=== PATIENT | male | born 1995 | race Two or more races ===

== ENCOUNTER 2022-10-15 11:51 | Outpatient (AMB) | payer OTHER, SELFPAY ==
--- NOTE | 2022-10-15 12:11 | MHC.PC.OV ---
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 He recently moved here from [place], her complains of recurrent itchy rash on the glans of penis, present for the last several weeks now. He is uncircumcised but states that he cleans foreskin well. Has been applying cortisone cream and aloe, which affords only temporary relief. He notices the rash occurring more frequently after sexual intercourse. Denies any penile discharge, no testicular lump or mass, no enlarged inguinal lymph nodes noted. Blood pressure noted to be elevated on today's visit, patient states that he has not been diagnosed with hypertension. He denies chest pain, but complains of good, no shortness of breath or dyspnea on exertion [facility] Medical History (Updated 09/22/23 @ 00:27 by Ashlee Mortensen MD) Vaccine refused by patient History of heroin use Balanitis Elevated blood pressure reading in office with diagnosis of hypertension Obesity (BMI 35.0-39.9 without comorbidity) Surgical History (Updated 09/22/23 @ 00:28 by Ashlee Mortensen MD) No pertinent past surgical history Social History Housing: Apartment Patient Tobacco Use Status: Former Tobacco user e-Cigarette/Vaping Use: Never Used service: No Current occupational status: employed Cognitive needs: No Hearing needs: No Vision needs: Yes Questionnaire PHQ-9 Over the last 2 weeks, how often have you been bothered by any of the following problems? 1. Little interest or pleasure in doing things: not at all 2. Feeling down, depressed, or hopeless: not at all 3. Trouble falling or staying asleep, or sleeping too much: not at all 4. Feeling tired or having little energy: not at all 5. Poor appetite or overeating: not at all 6. Feeling bad about yourself - or that you are a failure or have let yourself or your family down: not at all 7. Trouble concentrating on things, such as reading the newspaper or watching television: not at all 8. Moving or speaking so slowly that other people could have noticed. Or the opposite - being so fidgety or restless that you have been moving around a lot more than usual: not at all 9. Thoughts that you would be better off or of hurting yourself in some way: not at all Total score: 0 Depression Screening Interpretation: Negative 34028 - PHQ-9 Billing: Yes Source: Developed by Drs. Juan Carlos Pepper, Sarah Terry, Elias Jamison and colleagues, with an educational rose from [employer]. Thrive Questionnaire Date Thrive assessed: 10/15/22 I am a: Patient What is your living situation today?: I have a steady place to live Within the past 12 months, did the food you bought not last and you didn't have the money to get more?: Never true Within the past 12 months, did you worry whether your food would run out before you got money to buy more?: Never true Do you have trouble paying for medicines?: No Do you have trouble getting transportation to medical appointments?: No Do you have trouble paying your heating and electricity bill?: No Do you have trouble taking care of your child, family member or friend?: No Do you have trouble with day-to-day activities such as bathing, preparing meals, shopping, managing finances, etc.?: No Are you currently unemployed and looking for a job?: No Are you interested in more education?: No AUDIT C Alcohol Use Questionnaire (AUDIT-C) 1. How often do you have a drink containing alcohol?: Never Total Score: 0 BELA-7 AMB Questionnaire BELA-7 Date BELA - 7 assessed: 10/15/22 Feeling nervous, anxious, or on edge: 1 = Several days Not being able to stop or control worryin = Several days Worrying too much about different things: 1 = Several days Trouble relaxin = Not at all Being so restless that it is hard to sit still: 0 = Not at all Becoming easily annoyed or irritable: 0 = Not at all Feeling afraid as if something awful might happen: 0 = Not at all Total BELA-7 score (0-4 normal; 5-9 mild; 10-14 moderate; 15-21 severe): 3 Source: Developed by Drs. Juan Carlos Pepper, Sarah Terry, Elias Jamison and colleagues, with an educational rose from [employer]. BELA-7 Assessment Billing BELA-7 Assessment Tool: BELA-7 Assessment 65138 Review of Systems Const Denies body aches, Denies fatigue, Denies fever(s), Denies headache(s) and Denies weakness Eyes Denies change in vision ENT Denies dizziness, Denies headache(s) and Denies sore throat Card Denies chest pain, Denies lightheadedness, Denies palpitations and Denies dyspnea Resp Denies chest congestion, Denies cough, Denies dyspnea and Denies wheezing GI Denies abdominal pain, Denies change in bowel habits and Denies heartburn Denies hematuria, Denies difficulty urinating, Denies dysuria and Denies urinary frequency Musc Reports no additional complaints Skin/Breast Reports as per HPI Neuro Denies dizziness, Denies headache(s) and Denies weakness Psych Reports no additional complaints Endo Denies fatigue, Denies polydipsia, Denies polyuria and Denies palpitations Jesus/Lymph Denies easy bruising Aller/Immun Denies seasonal rhinorrhea and Denies wheezing Physical exam (Primary Care) Vital Signs: Last Vital Signs Pulse 95 10/15/22 12:27 BP 140/85 H 10/15/22 12:27 Pulse Ox 100 10/15/22 12:27 Oxygen Delivery Method Room Air 10/15/22 12:27 BMI result Body Mass Index 37.7 Tobacco/Smoking Status: Tobacco use Status Tobacco use date assessed 10/15/22 10/15/22 12:27 Patient Tobacco Use Status Former Tobacco user 10/15/22 12:27 e-Cigarette/Vaping Use Never Used 10/15/22 12:27 PHQ-9: PHQ-9 Score PHQ-9: Total score 0 10/15/22 18:01 Depression Screening Interpretation: Negative Thrive Assessment: Date of Thrive Assessment Date Thrive assessed 10/15/22 10/15/22 12:34 Const General: comfortable, no acute distress and alert Nutritional Appearance: obese Orientation/consciousness: patient oriented x3 HENMT Ears: external ears normal General nose exam: No nasal discharge present Mouth: Normal oral and palatal mucosa present, oropharynx normal and moist mucous membranes Eyes General: appearance normal, both eyes and all related structures Neck Neck: Yes full ROM, Yes no lymphadenopathy and Yes supple Resp Effort & Inspection: normal respiratory effort and able to speak in complete sentences Auscultation: clear to auscultation bilaterally Cardio Rate: regular rate Rhythm: regular rhythm Heart sounds: S1 normal heart sound present and S2 normal heart sound present GI Palpation (GI): Soft to palpation, nontender and no masses Auscultation: normal bowel sounds Other: Mild erythema and swelling over glans penis, no penile discharge, no inguinal lymphadenopathy, no testicular mass or swelling noted Back/Spine/Pelvis Back: No back tenderness Neuro General: patient oriented x3, gait normal, tone normal, moves all extremities, Normal light touch and pain sensation and no focal motor deficits Cranial nerves: Yes CN's II-XII intact bilaterally Cognition (Neuro): normal cognition Extrem General: Yes full ROM and Yes no joint enlargement Psych Appearance: grossly normal and well kempt Mental Status: mental status grossly normal Speech and movement: Normal speech and movement present Affect: normal affect Immunizations Boostrix Tdap 2.5 Lf unit-8 mcg-5 Lf/0.5 mL intramuscular syringe Performing Provider: Ashlee Mortensen MD Performing Location: [facility] Administered by: Jasmin Magaña CMA on 10/15/22 14:00 Dose Route Admin Location Dispensed Lot Number Expiration Date NDC Dred[employer] Hand 0.5 mL IM Left Deltoid 0.5 mL L 02/03/25 [id number] [employer] VIS Given Date VIS Provided VIS Publication Date 10/15/22 Single Vaccine 20 Eligibility Eligibility Date Funding Source Not VF Eligible 10/15/22 Private Assessment and Plan Assessment & Plan (1) Annual visit for general adult medical examination with abnormal findings: Code(s): Z00.01 - Encounter for general adult medical examination with abnormal findings Plan: Fasting labs ordered , reinforced importance of following a low-cholesterol diet and getting regular exercise. Tdap given today. Reminded to get yearly flu shot (2) Balanitis: Code(s): N48.1 - Balanitis Plan: Prescription sent for nystatin triamcinolone cream apply twice a day to affected area for no more than 10 days . (3) Elevated blood pressure reading in office with diagnosis of hypertension: Code(s): I10 - Essential (primary) hypertension Plan: Reinforced importance of following a low-salt diet, return to clinic for recheck in 1 week after fasting labs (4) Screening for STD (sexually transmitted disease): Code(s): Z11.3 - Encounter for screening for infections with a predominantly sexual mode of transmission Plan: Labs ordered to check for HIV antibody, hepatitis-B and C profile, syphilis screening, and CT NG by PCR test (5) Obesity (BMI 35.0-39.9 without comorbidity): Code(s): E66.9 - Obesity, unspecified Plan: Discussed need to increase activity and wt reduction. Recommended focusing on improving your health instead of dieting. : Eat Mediterranean diet, limit foods high in fat, sugar, and calories, eat slowly, pay attention to portion sizes, plan your meals ahead of time, start regular physical activity 150 minutes of moderate intensity exercise or 90 minutes/week of vigorous exercise Orders: Orders HIV Ab/Ag 10/21/22 Z11.3 - Encounter for screening for infections with a predominantly sexual mode of transmission Hepatitis B,C Profile 10/21/22 Z11.3 - Encounter for screening for infections with a predominantly sexual mode of transmission Syphilis Screen 10/21/22 Z11.3 - Encounter for screening for infections with a predominantly sexual mode of transmission Lipid Panel 10/21/22 Z11.3 - Encounter for screening for infections with a predominantly sexual mode of transmission Alanine Aminotransferase 10/21/22 Z11.3 - Encounter for screening for infections with a predominantly sexual mode of transmission Aspartate Amino Transferase 10/21/22 Z11.3 - Encounter for screening for infections with a predominantly sexual mode of transmission Complete Blood Count Auto Diff 10/21/22 Z11.3 - Encounter for screening for infections with a predominantly sexual mode of transmission CT NG by PCR 10/15/22 Z11.3 - Encounter for screening for infections with a predominantly sexual mode of transmission Basic Metabolic Panel Fasting 10/21/22 Z11.3 - Encounter for screening for infections with a predominantly sexual mode of transmission TDaP Immunization 10/15/22 Z23 - Encounter for immunization Medications: New nystatin-triamcinolone 100,000-0.1 unit/g-% 1 appl topical BID 30 grams 0RF 10 days Coding Level of Care Code New Pt Prev Care 18-39yr([id number] Diagnoses Annual visit for general adult medical examination with abnormal findings Z00.01 Balanitis N48.1 Elevated blood pressure reading in office with diagnosis of hypertension I10 Screening for STD (sexually transmitted disease) Z11.3 Obesity (BMI 35.0-39.9 without comorbidity) E66.9 Additional Codes BELA-7 Assessment Billing - BELA-7 Assessment Tool: BELA-7 Assessment [id number] ([id number])
[2022-10-15 12:27] VITALS: BP 140/85; PULSE 95; O2SAT 100; BMI 37.7
== END 2022-10-15 13:17 | disposition home or self-care (01) ==
LOC: HO.HMGC 11:51
PROVIDERS: PCP Internal Medicine; Visit Provider Internal Medicine
DX: Z00.00 Encounter for general adult medical examination without abnormal findings (principal); E66.9 Obesity, unspecified; Z68.37 Body mass index [BMI] 37.0-37.9, adult; N48.1 Balanitis; I10 Essential (primary) hypertension; Z11.3 Encounter for screening for infections with a predominantly sexual mode of transmission
CPT/HCPCS: 99499

== ENCOUNTER 2022-10-15 13:13 | Outpatient (REF) | payer OTHER, SELFPAY ==
[2022-10-15 15:43] LABS: CT PCR NOT DETECTED (Not Detect.); NG PCR NOT DETECTED (Not Detect.)
== END 2022-10-15 13:14 | disposition home or self-care (01) ==
LOC: HO.LAB 13:13
PROVIDERS: Visit Provider Internal Medicine
DX: Z11.3 Encounter for screening for infections with a predominantly sexual mode of transmission (principal)
CPT/HCPCS: 0353U

== ENCOUNTER 2022-10-21 12:54 | Outpatient (REF) | payer OTHER, SELFPAY ==
[2022-10-21 14:01] LABS: MANUAL DIFF FLAG NO
[2022-10-21 14:16] LABS: Basophils Percent Auto 0.6 % (0-2); Eosinophils Absolute Auto 0.1 X10*3/uL (0.0-0.4); Hematocrit 43.9 % (42.0-52.0); Hemoglobin 13.4 g/dl (14.0-18.0); Imm Gran Abs Auto 0.01 X10*3/uL (0.00-0.03); Imm Gran Pct Auto 0.1 % (0.0-0.4); Lymphocytes Absolute Auto 2.9 X10*3/uL (1.2-4.9); Lymphocytes Percent Auto 39.9 % (20-40); Mean Corpuscular HGB Conc 30.5 g/dl (31.0-36.0); Mean Corpuscular Hemoglobin 21.4 pg (27.0-33.0); Mean Corpuscular Volume 70.1 fL (80.0-98.0); Mean Platelet Volume 10.8 fL (9.4-12.4); Monocytes Absolute Auto 0.4 X10*3/uL (0.1-1.2); Monocytes Percent Auto 5.3 % (2-11); Neutrophils Absolute Auto 3.7 x10*3/uL (2.0-8.3); Neutrophils Percent Auto 52.1 % (45-73); Platelet Count 229 X10*3/uL (160-400); Red Blood Count 6.26 X10*6/uL (4.60-5.80); Red Cell Distribution Width 14.8 % (11.0-16.0); White Blood Count 7.1 X10*3/uL (4.8-10.8)
[2022-10-21 14:31] LABS: Alanine Aminotransferase 49 U/L (0-40); Anion Gap 12 (12-20); Aspartate Amino Transferase 24 U/L (5-37); Blood Urea Nitrogen 8 mg/dL (9-16); Calcium 9.9 mg/dL (8.4-10.2); Carbon Dioxide 29 mmol/L (22-29); Chloride 100 mmol/L (96-108); Cholesterol 232 mg/dL; Estimated Glomerular Filt Rate > 60; Glucose Fasting 261 mg/dL (60-99); HDL Cholesterol 34 mg/dL; LDL Cholesterol Calculated 153 mg/dl; Potassium 4.2 mmol/L (3.3-5.1); Sodium 137 mmol/L (135-145); Triglycerides 227 mg/dL
[2022-10-22 04:50] LABS: Syphilis Screen Nonreactive (Nonreactive)
[2022-10-22 05:01] LABS: HBS Num1 4.32 mIU/mL (0-7.99); HBc Num1 0.09 S/CO (0.00-0.79); HBsAGNum1 0.44 S/CO (0.00-0.99); HIV AB/AG Nonreactive (Nonreactive); HIV Num 1 0.06 S/CO (0.00-0.99); Hepatitis B Core Antibody Nonreactive (Nonreactive); Hepatitis B Surface Antigen Negative (Negative); ~HepC Num1 0.06 S/CO (0.00-0.79); ~Hepatitis B Surface Antibody NONREACTIVE (Nonreactive); ~Hepatitis C Antibody Nonreactive (Nonreactive)
== END 2022-10-21 12:55 | disposition home or self-care (01) ==
LOC: HO.HMGCLDS 12:54
PROVIDERS: PCP Internal Medicine; Visit Provider Internal Medicine
DX: Z20.2 Contact with and (suspected) exposure to infections with a predominantly sexual mode of transmission (principal)
CPT/HCPCS: 36415; 80048; 80061; 84450; 84460; 85025; 86704; 86706; 86780; 86803; 87340; 87389

== ENCOUNTER 2022-10-22 13:17 | Outpatient (AMB) | payer OTHER, SELFPAY ==
--- NOTE | 2022-10-22 13:23 | A.OFFPC_ITS ---
Vital Signs 10/22/22 13:32 Height 6 ft 1 in Weight 289 lb BMI 38.1 BP 152/98 H Blood Pressure Location Lt brachial Position Sitting Pulse 86 Pulse Source Pulse Oximeter Pulse Oximetry (%) 97 Oxygen Delivery Method Room Air Intake Visit Reasons: 1 week Follow up Recheck BP/Elevated last visit Intake Note: Pt is here today for his 1 week f/u elevated b/p Allergies No Known Allergies Allergy (Verified 07/15/23 10:14) Medication List - Last Reconciled 07/12/23 by Ashlee Mortensen MD blood sugar diagnostic (FreeStyle Lite Strips) Check fasting glucose twice a day before meals blood-glucose meter (FreeStyle [place] Lite kit) Check blood sugar fasting twice a day before meals lancets Check fasting glucose twice a day before lisinopril 5 mg PO DAILY metformin 500 mg PO BIDWMEAL nystatin-triamcinolone 100,000-0.1 unit/g-% 1 appl topical BID 10 days rosuvastatin 5 mg PO DAILY Tobacco use date assessed: 10/22/22 HPI 1 week Follow up Recheck BP/Elevated last visit HPI Details 27-year-old male here today for follow-u p. He was recently seen a week ago with elevated blood pressure and recent fasting labs showed please of diabetes mellitus uncontrolled, mixed dyslipidemia, and blood pressure still elevated on this visit. [facility] Medical History (Updated 09/22/23 @ 00:37 by Ashlee Mortensen MD) Essential hypertension Mixed dyslipidemia Type 2 diabetes mellitus with hyperglycemia, without long-term current use of insulin History of heroin use Balanitis Obesity (BMI 35.0-39.9 without comorbidity) Surgical History (Updated 09/22/23 @ 00:28 by Ashlee Mortensen MD) No pertinent past surgical history Social History Housing: Apartment Patient Tobacco Use Status: Former Tobacco user e-Cigarette/Vaping Use: Never Used service: No Current occupational status: employed Cognitive needs: No Hearing needs: No Vision needs: Yes Questionnaire PHQ-9 Over the last 2 weeks, how often have you been bothered by any of the following problems? Depression Screening Interpretation: Negative Source: Developed by Drs. Juan Carlos Pepper, Sarah B.Elias Pace and colleagues, with an educational rose from [employer]. Thrive Questionnaire Date Thrive assessed: 10/15/22 BELA-7 AMB Questionnaire BELA-7 Date BELA - 7 assessed: 10/15/22 Source: Developed by Drs. Juan Carlos Pepper, Elias Islas and colleagues, with an educational rose from [employer]. Review of Systems Const Denies body aches, Denies fatigue, Denies fever(s), Denies headache(s), Denies weakness and Denies weight loss Eyes Denies change in vision ENT Denies dizziness, Denies headache(s) and Denies sore throat Card Denies chest pain, Denies lightheadedness, Denies palpitations and Denies dyspnea Resp Denies chest congestion, Denies cough, Denies dyspnea and Denies wheezing GI Denies abdominal pain, Denies change in bowel habits and Denies heartburn Denies hematuria, Denies difficulty urinating, Denies dysuria and Reports urinary frequency Musc Reports no additional complaints Neuro Denies dizziness, Denies headache(s) and Denies weakness Endo Denies fatigue, Reports polydipsia, Reports polyuria and Denies palpitations Jesus/Lymph Denies easy bruising Aller/Immun Denies seasonal rhinorrhea and Denies wheezing Physical exam (Primary Care) Vital Signs: Last Vital Signs Pulse 86 10/22/22 13:32 BP 152/98 H 10/22/22 13:32 Pulse Ox 97 10/22/22 13:32 Oxygen Delivery Method Room Air 10/22/22 13:32 BMI result Body Mass Index 38.1 Tobacco/Smoking Status: Tobacco use Status Tobacco use date assessed 10/22/22 10/22/22 13:27 Patient Tobacco Use Status Former Tobacco user 10/22/22 13:27 e-Cigarette/Vaping Use Never Used 10/22/22 13:27 Depression Screening Interpretation: Negative Thrive Assessment: Date of Thrive Assessment Date Thrive assessed 10/15/22 10/22/22 13:27 Const General: comfortable, no acute distress and alert Orientation/consciousness: patient oriented x3 HENMT Ears: external ears normal General nose exam: No nasal discharge present Mouth: oropharynx normal and moist mucous membranes Eyes General: appearance normal, both eyes and all related structures Neck Neck: Yes full ROM, Yes no lymphadenopathy and Yes supple Resp Effort & Inspection: normal respiratory effort and able to speak in complete sentences Auscultation: clear to auscultation bilaterally Cardio Rate: regular rate Rhythm: regular rhythm Heart sounds: S1 normal heart sound present and S2 normal heart sound present GI Palpation (GI): Soft to palpation, nontender and no masses Auscultation: normal bowel sounds Neuro General: patient oriented x3, gait normal, tone normal, moves all extremities, Normal light touch and pain sensation and no focal motor deficits Cranial nerves: Yes CN's II-XII intact bilaterally Cognition (Neuro): normal cognition Extrem General: Yes full ROM and Yes no joint enlargement Immunizations pneumoc 20-jayshree conj-dip cr(PF) 0.5 mL IM syringe Performing Provider: Ashlee Mortensen MD Performing Location: [facility] Administered by: Jasmin Magaña CMA on 10/22/22 14:33 Dose Route Admin Location Dispensed Lot Number Expiration Date NDC Manager Medical Device 0.5 mL IM Right Deltoid 0.5 mL GN [id number] 02/15/24 [employer] [place] VIS Given Date VIS Provided VIS Publication Date 10/22/22 Single Vaccine 21 Eligibility Eligibility Date Funding Source Not VFC Eligible 10/22/22 Private Results Reviewed Results Reviewed: RUN: 09/22/23 0032 PAGE 1 [facility] [address] [place] [phone] Data Manager: Prudencio Fields M.D. Specimen Inquiry Name: Girma Cuba Age/Sex: 27/M : 1995 Unit#: [id number] Attend Dr: Ashlee Mortensen MD Re10/21/22 Status: DEP REF Location: [facility] Disch: SPEC : [id number] [place]LE[place]: 10/21/22-1302 STATUS: COMP REQ : [id number] RECD: 10/21/22-[address]: Ashlee Mortensen MD COMP: 10/21/22-1299 ENTERED: 10/21/22-[address] [facility] DR: ORDERED: CBC Auto Diff Test Result Flag Reference WBC 7.1 4.8-10.8 X10*3/uL RBC 6.26 H 4.60-5.80 X10*6/uL HGB 13.4 L 14.0-18.0 g/dl HCT 43.9 42.0-52.0 % MCV 70.1 L 80.0-98.0 fL MCH 21.4 L 27.0-33.0 pg MCHC 30.5 L 31.0-36.0 g/dl RDW 14.8 11.0-16.0 % PLT 229 160-400 X10*3/uL MPV 10.8 9.4-12.4 fL Neut Pct Auto 52.1 45-73 % ImGran Pct Auto 0.1 0.0-0.4 % Lymp Pct Auto 39.9 20-40 % Dolores Pct Auto 5.3 2-11 % Eos Pct Auto 2.0 0-4 % Baso Pct Auto 0.6 0-2 % NRBC Pct Auto 0.0 0.0-0.2 /100WBC ANC Neut Abs # 3.7 2.0-8.3 x10*3/uL ImGran Abs Auto 0.01 0.00-0.03 X10*3/uL Lymph Abs Auto 2.9 1.2-4.9 X10*3/uL Dolores Abs Auto 0.4 0.1-1.2 X10*3/uL Eos Abs Auto 0.1 0.0-0.4 X10*3/uL Baso Abs Auto 0.0 0.0-0.2 X10*3/uL NRBC Abs Auto 0.000 0.0-0.012 X10*3/uL Name: Girma Cuba Age/Sex: 27/M : 1995 Unit#: [id number] Attend Dr: Ashlee Mortensen MD Re07/21/23 Status: DEP REF Location: [facility] Disch: SPEC : [id number] CELESTINO: 07/21/23 STATUS: COMP REQ : [id number] RECD: 07/21/[address]: Ashlee Mortensen MD COMP: 07/21/23 ENTERED: 07/21/23 [facility] [address]: ORDERED: Met Prof Fast, AST, ALT, Lipid Panel Test Result Flag Reference Sodium 139 135-145 mmol/L Potassium 4.3 3.3-5.1 mmol/L CL 103 96-108 mmol/L CO2 27 22-29 mmol/L Gap 13 12-20 BUN 10 9-16 mg/dL Creat 0.81 0.5-1.4 mg/dL EGFR > 60 NOTE: For -[place] individuals, multiply the result by 1.210. Chronic Kidney Disease: Estimated GFR < 60 mL/min/1.73m2 Severe Kidney Disease: Estimated GFR < 15 mL/min/1.73m2 FBS 261 H 60-99 mg/dL A fasting glucose of 126 mg/dl or greater on more than one occasion is considered diagnostic of diabetes. CA 9.5 8.4-10.2 mg/dL AST (GOT) 16 5-37 U/L ALT (GPT) 34 0-40 U/L Triglyceride 212 H <150 mg/dL Desirable Triglyceride: less than 150 mg/dL Borderline High Triglyceride 150-199 mg/dL High Triglyceride: 200-499 mg/dL Very High Triglyceride: greater than or equal to 5OO mg/dL Cholesterol 248 H <200 mg/dL Desirable Cholesterol: less than 200 mg/dL Borderline High Cholesterol: 200-239 mg/dL High Cholesterol: greater than 239 mg/dL LDL Calculated 170 H <100 mg/dL Desirable LDL: less than 100 mg/dL Near Optimal/Above Optimal LDL: 110-129 mg/dL Borderline High LDL: 130-159 mg/dL High LDL: 160-189 mg/dL Very High LDL: greater than or equal to 190 mg/dL HDL 36 L >40 mg/dL Desirable HDL: greater than 40 mg/dL Note: This HDL assay may give artificially low results in patients with liver disease. Laboratory Tests 10/22/22 14:40 Estimat Average Glucose 303 Hemoglobin A1c % 12.2 Assessment and Plan Assessment & Plan (1) Diabetes mellitus with hyperglycemia, without long-term current use of insulin: Code(s): E11.65 - Type 2 diabetes mellitus with hyperglycemia Qualifiers: Diabetes mellitus type: type 2 Qualified Code(s): E11.65 - Type 2 diabetes mellitus with hyperglycemia Plan: Start metformin 500 mg to take 1 tablet twice a day with meals, reinforced importance of following diabetic diet and getting regular exercise for more weight loss, Prevnar 20 given today, advised to get yearly flu vaccine, advised to get yearly diabetes retinopathy screening. Inspect feet for any lesions or calluses or ulcers repeat hemoglobin A1c, basic metabolic panel and a urine for microalbuminuria screening in 3 months Check fasting blood sugar twice a day before meals and keep a record of glucose log to be reviewed on next visit (2) Dyslipidemia: Code(s): E78.5 - Hyperlipidemia, unspecified Plan: Recent fasting lipids showed elevated LDL cholesterol and triglycerides, started on rosuvastatin 5 mg taken once a day, combined this with adherence to low- cholesterol diet, weight loss through diet and exercise. Avoidance of alcohol intake when taking this medication (3) Essential hypertension: Code(s): I10 - Essential (primary) hypertension Plan: Blood pressure goal is less than 130/80. Started on lisinopril 5 mg taken once a day in a.m. Reinforced importance of following a low sodium diet, getting regular exercise, and lowering stress levels. (4) Mixed dyslipidemia: Code(s): E78.2 - Mixed hyperlipidemia Plan: Recent fasting lipids showed elevated LDL cholesterol and triglycerides, started on rosuvastatin 5 mg taken once a day, combined this with adherence to low- cholesterol diet, weight loss through diet and exercise. Avoidance of alcohol intake when taking this medication Orders: Orders Microalbumin, Random (w Creat) 10/22/22 E11.65 - Type 2 diabetes mellitus with hyperglycemia Alanine Aminotransferase 3 Months E11.65 - Type 2 diabetes mellitus with hyperglycemia, E78.5 - Hyperlipidemia, unspecified, E66.9 - Obesity, unspecified, I10 - Essential (primary) hypertension Aspartate Amino Transferase 3 Months E11.65 - Type 2 diabetes mellitus with hyperglycemia, E78.5 - Hyperlipidemia, unspecified, E66.9 - Obesity, unspecified, I10 - Essential (primary) hypertension Hemoglobin A1c 3 Months E11.65 - Type 2 diabetes mellitus with hyperglycemia, E78.5 - Hyperlipidemia, unspecified, E66.9 - Obesity, unspecified, I10 - Essential (primary) hypertension Hemoglobin A1c 06/07/23 E11.65 - Type 2 diabetes mellitus with hyperglycemia Lipid Panel 3 Months E11.65 - Type 2 diabetes mellitus with hyperglycemia, E78.5 - Hyperlipidemia, unspecified, E66.9 - Obesity, unspecified, I10 - Essential (primary) hypertension Basic Metabolic Panel Fasting 3 Months E11.65 - Type 2 diabetes mellitus with hyperglycemia, E78.5 - Hyperlipidemia, unspecified, E66.9 - Obesity, unspecified, I10 - Essential (primary) hypertension Pneumococcal 20 Immunization 10/22/22 Z23 - Encounter for immunization Medications: New metformin 500 mg PO BIDWMEAL 60 tabs 4RF lisinopril 5 mg PO DAILY 30 tabs 4RF rosuvastatin 5 mg PO DAILY 30 tabs 4RF blood-glucose meter (FreeStyle [place] Lite kit) Check blood sugar fasting twice a day before meals 1 ea 0RF E11.65 - Type 2 diabetes mellitus with h yperglycemia, E78.5 - Hyperlipidemia, unspecified, E66.9 - Obesity, unspecified, I10 - Essential (primary) hypertension blood sugar diagnostic (FreeStyle Lite Strips) Check fasting glucose twice a day before meals 100 ea 4RF E11.65 - Type 2 diabetes mellitus with hyperglycemia lancets Check fasting glucose twice a day before 100 ea 4RF E11.65 - Type 2 diabetes mellitus with hyperglycemia Coding Level of Care Code Est Pt Level 4 (35596) Diagnoses Type 2 diabetes mellitus with hyperglycemia, without long-term current use of insulin E11.65 Diabetes mellitus type: type 2 Dyslipidemia E78.5 Essential hypertension I10 Mixed dyslipidemia E78.2
[2022-10-22 13:32] VITALS: BP 152/98; PULSE 86; O2SAT 97; BMI 38.1
== END 2022-10-22 14:33 | disposition home or self-care (01) ==
LOC: HO.HMGC 13:17
PROVIDERS: PCP Internal Medicine; Visit Provider Internal Medicine
DX: E11.65 Type 2 diabetes mellitus with hyperglycemia (principal); E78.5 Hyperlipidemia, unspecified; I10 Essential (primary) hypertension; E78.2 Mixed hyperlipidemia
CPT/HCPCS: 99499

== ENCOUNTER 2022-10-22 14:36 | Outpatient (REF) | payer OTHER, SELFPAY ==
[2022-10-22 17:56] LABS: Creatinine Urine 94.76 mg/dL; Microalbum/Creatinine Ratio Ur 35.8 ug/mg cr
[2022-10-23 05:21] LABS: Estimated Average Glucose 303 mg/dL; Hemoglobin A1c % 12.2 %
== END 2022-10-22 14:37 | disposition home or self-care (01) ==
LOC: HO.HMGCLDS 14:36
PROVIDERS: PCP Internal Medicine; Visit Provider Internal Medicine
DX: E11.65 Type 2 diabetes mellitus with hyperglycemia (principal)
CPT/HCPCS: 36415; 82043; 83036

== ENCOUNTER 2023-07-15 09:03 | Outpatient (AMB) | payer OTHER, SELFPAY ==
[2023-07-15 09:44] VITALS: BP 140/98; PULSE 80; O2SAT 98; BMI 34.0
--- NOTE | 2023-07-15 09:44 | A.OFFPC_ITS ---
Vital Signs 07/15/23 09:44 Height 6 ft 1 in Weight 258 lb BMI 34.0 BP 140/98 H Blood Pressure Location Lt brachial Position Sitting Pulse 80 Pulse Source Pulse Oximeter Pulse Oximetry (%) 98 Oxygen Delivery Method Room Air Intake Visit Reasons: DM, lipids, HTN -Follow Up Intake Note: Pt is here today to f/u DM, lipids and HTN: patient didn't get labs done, but a A1C will be done at the office: Pt wants to discuss insomnia Allergies No Known Allergies Allergy (Verified 07/15/23 10:14) Medication List - Last Reconciled 07/15/23 by Ashlee Mortensen MD blood sugar diagnostic (FreeStyle Lite Strips) Check fasting glucose twice a day before meals blood-glucose meter (FreeStyle [place] Lite kit) Check blood sugar fasting twice a day before meals lancets Check fasting glucose twice a day before lisinopril 5 mg PO DAILY metformin 500 mg PO BIDWMEAL Tobacco use date assessed: 07/15/23 Dental Screening Dental Screen Date: 07/15/23 Did you have a dental visit in the last 12 months?: Yes Did you have a dental problem in the last 6 months where you did not have access to dental care?: No Was dental information given to patient?: Patient has dentist HPI DM, lipids, HTN -Follow Up HPI Details 27-year-old male with diabetes mellitus, hypertension, dyslipidemia, and obesity, here today for follow-up. He is currently taking metformin 500 mg 1 tablet twice a day, lisinopril 5 mg 1 tablet in the morning. Not very compliant with diet, and has not yet had his fasting labs done as instructed. His hemoglobin A1c drawn at the clinic today came back high at 9.8%, but patient states that he has been checking his sugar in the morning and has been running in the low 100s, but does go up to low 200 in the afternoon. He does not want to get any vaccinations. He also states that he has stopped using her when 3 weeks ago and has been trying to turn his life around, eating healthier, and trying to stay more active. Blood pressure today is better as compared to last check but still not at goal. COUNTS INCLUDE 234 BEDS AT THE [facility] Medical History Vaccine refused by patient History of heroin use Essential hypertension Dyslipidemia Diabetes mellitus with hyperglycemia, without long-term current use of insulin Adalberto Elevated blood pressure reading in office with diagnosis of hypertension Obesity (BMI 35.0-39.9 without comorbidity) Social History Housing: Apartment Patient Tobacco Use Status: Former Tobacco user e-Cigarette/Vaping Use: Never Used service: No Current occupational status: employed Cognitive needs: No Hearing needs: No Vision needs: Yes Questionnaire PHQ-9 Over the last 2 weeks, how often have you been bothered by any of the following problems? 1. Little interest or pleasure in doing things: not at all 2. Feeling down, depressed, or hopeless: not at all 3. Trouble falling or staying asleep, or sleeping too much: several days 4. Feeling tired or having little energy: several days 5. Poor appetite or overeating: several days 6. Feeling bad about yourself - or that you are a failure or have let yourself or your family down: not at all 7. Trouble concentrating on things, such as reading the newspaper or watching television: not at all 8. Moving or speaking so slowly that other people could have noticed. Or the opposite - being so fidgety or restless that you have been moving around a lot more than usual: not at all 9. Thoughts that you would be better off or of hurting yourself in some way: not at all Total score: 3 Depression Screening Interpretation: Negative Depression Screening Done: Yes 12155 - PHQ-9 Billing: Yes Source: Developed by Drs. Juan Carlos Pepper, Sarah Terry, Elias Jamison and colleagues, with an educational rose from [employer]. Thrive Questionnaire Date Thrive assessed: 07/15/23 I am a: Patient What is your living situation today?: I have a steady place to live Within the past 12 months, did the food you bought not last and you didn't have the money to get more?: Never true Within the past 12 months, did you worry whether your food would run out before you got money to buy more?: Never true Do you have trouble paying for medicines?: No Do you have trouble getting transportation to medical appointments?: No Do you have trouble paying your heating and electricity bill?: No Do you have trouble taking care of your child, family member or friend?: No Do you have trouble with day-to-day activities such as bathing, preparing meals, shopping, managing finances, etc.?: No Are you currently unemployed and looking for a job?: No Are you interested in more education?: Yes THRIVE Score: 0 AUDIT C Alcohol Use Questionnaire (AUDIT-C) 1. How often do you have a drink containing alcohol?: Monthly or less 2. How many drinks containing alcohol do you have on a typical day when you are drinking?: 1 or 2 3. How often do you have six or more drinks on one occasion?: Never Total Score: 1 BELA-7 AMB Questionnaire BELA-7 Date BELA - 7 assessed: 07/15/23 Feeling nervous, anxious, or on edge: 1 = Several days Not being able to stop or control worryin = Not at all Worrying too much about different things: 1 = Several days Trouble relaxin = Several days Being so restless that it is hard to sit still: 1 = Several days Becoming easily annoyed or irritable: 0 = Not at all Feeling afraid as if something awful might happen: 0 = Not at all Total BELA-7 score (0-4 normal; 5-9 mild; 10-14 moderate; 15-21 severe): 4 Source: Developed by Drs. Juan Carlos Pepper, Sarah Terry, Elias Jamison and colleagues, with an educational rose from [employer]. BELA-7 Assessment Billing BELA-7 Assessment Tool: BELA-7 Assessment 76341 Review of Systems Const Denies body aches, Reports difficulty sleeping, Denies fatigue, Denies fever(s), Denies headache(s) and Denies weakness Eyes Denies change in vision ENT Denies dizziness, Denies headache(s) and Denies sore throat Card Denies chest pain, Denies lightheadedness, Denies palpitations and Denies dyspnea Resp Denies chest congestion, Denies cough, Denies dyspnea and Denies wheezing GI Denies abdominal pain, Denies change in bowel habits and Denies heartburn Denies hematuria, Denies difficulty urinating, Denies dysuria and Denies urinary frequency Neuro Denies dizziness, Denies headache(s) and Denies weakness Endo Denies fatigue, Denies polydipsia, Denies polyuria and Denies palpitations Jesus/Lymph Denies easy bruising Aller/Immun Denies seasonal rhinorrhea and Denies wheezing Physical exam (Primary Care) Vital Signs: Last Vital Signs Pulse 80 07/15/23 09:44 BP 140/98 H 07/15/23 09:44 Pulse Ox 98 07/15/23 09:44 Oxygen Delivery Method Room Air 07/15/23 09:44 BMI result Body Mass Index 34.0 Tobacco/Smoking Status: Tobacco use Status Tobacco use date assessed 07/15/23 07/15/23 09:52 Patient Tobacco Use Status Former Tobacco user 07/15/23 09:52 e-Cigarette/Vaping Use Never Used 07/15/23 09:52 PHQ-9: PHQ-9 Score PHQ-9: Total score 3 07/15/23 10:23 Depression Screening Interpretation: Negative Thrive Assessment: Date of Thrive Assessment Date Thrive assessed 07/15/23 07/15/23 10:01 Const General: comfortable, no acute distress and alert Orientation/consciousness: patient oriented x3 HENMT Ears: external ears normal General nose exam: No nasal discharge present Mouth: Normal oral and palatal mucosa present, oropharynx normal and moist mucous membranes Eyes General: appearance normal, both eyes and all related structures Neck Neck: Yes full ROM, Yes no lymphadenopathy and Yes supple Resp Effort & Inspection: normal respiratory effort and able to speak in complete sentences Auscultation: clear to auscultation bilaterally Cardio Rate: regular rate Rhythm: regular rhythm Heart sounds: S1 normal heart sound present and S2 normal heart sound present GI Palpation (GI): Soft to palpation, nontender and no masses Auscultation: normal bowel sounds Neuro General: patient oriented x3, gait normal, tone normal, moves all extremities, Normal light touch and pain sensation and no focal motor deficits Cranial nerves: Yes CN's II-XII intact bilaterally Cognition (Neuro): normal cognition Extrem General: Yes full ROM and Yes no joint enlargement Results AMB Hemoglobin A1c AMB Hemoglobin A1c 9.8 % Last Edit by Jasmin Magaña CMA on 07/15/23 10:07 Results Reviewed Results Reviewed: Laboratory Last Values Hgb A1c (Clinic) 9.8 % (4.0-6.0) H 07/15/23 10:06 Assessment and Plan Assessment & Plan (1) Diabetes mellitus with hyperglycemia, without long-term current use of insulin: Code(s): E11.65 - Type 2 diabetes mellitus with hyperglycemia Plan: Diabetes not well controlled, will increase metformin dose to a 1000 mg 1 tablet twice a day with meals. Referred to [facility] for diabetes education, nutrition guide. (2) Essential hypertension: Code(s): I10 - Essential (primary) hypertension Plan: Will increase lisinopril dose to 10 mg 1 daily, goal blood pressure less than 130/80. Reinforced importance of following a low-salt diet and getting regular exercise to lose weight (3) Dyslipidemia: Code(s): E78.5 - Hyperlipidemia, unspecified Plan: Patient reminded to get his fasting labs donea (4) Vaccine refused by patient: Code(s): Z28.20 - Immunization not carried out because of patient decision for unspecified reason Orders: Orders AMB Hemoglobin A1c 07/15/23 E11.65 - Type 2 diabetes mellitus with hyperglycemia Medications: New hydroxyzine HCl 25 mg PO BEDTIME PRN 30 tabs 0RF anxiety/insomnia Changed From lisinopril 5 mg PO DAILY 30 tabs 4RF To lisinopril 10 mg PO DAILY 30 tabs 5RF From metformin 500 mg PO BIDWMEAL 60 tabs 4RF To metformin 1,000 mg PO BIDWMEAL 30 days 60 tabs 5RF Coding Level of Care Code Est Pt Level 4 (16235) Diagnoses Diabetes mellitus with hyperglycemia, without long-term current use of insulin E11.65 Essential hypertension I10 Dyslipidemia E78.5 Vaccine refused by patient Z28.20 Additional Codes BELA-7 Assessment Billing - BELA-7 Assessment Tool: BELA-7 Assessment 01355 ([id number])
== END 2023-07-15 10:43 | disposition home or self-care (01) ==
PROVIDERS: PCP Internal Medicine; Visit Provider Internal Medicine
DX: E11.65 Type 2 diabetes mellitus with hyperglycemia (principal)
CPT/HCPCS: 83036; 99214

== ENCOUNTER 2023-07-21 09:02 | Outpatient (REF) | payer OTHER, SELFPAY ==
[2023-07-21 12:08] LABS: Estimated Average Glucose 240 mg/dL
[2023-07-21 12:22] LABS: Alanine Aminotransferase 34 U/L (0-40); Anion Gap 13 (12-20); Aspartate Amino Transferase 16 U/L (5-37); Blood Urea Nitrogen 10 mg/dL (9-16); Calcium 9.5 mg/dL (8.4-10.2); Carbon Dioxide 27 mmol/L (22-29); Chloride 103 mmol/L (96-108); Cholesterol 248 mg/dL (<200); Estimated Glomerular Filt Rate > 60; Glucose Fasting 261 mg/dL (60-99); HDL Cholesterol 36 mg/dL (>40); LDL Cholesterol Calculated 170 mg/dL (<100); Potassium 4.3 mmol/L (3.3-5.1); Sodium 139 mmol/L (135-145); Triglycerides 212 mg/dL (<150)
== END 2023-07-21 09:03 | disposition home or self-care (01) ==
LOC: HO.HMGCLDS 09:02
PROVIDERS: PCP Internal Medicine; Visit Provider Internal Medicine
DX: E11.65 Type 2 diabetes mellitus with hyperglycemia (principal); E78.5 Hyperlipidemia, unspecified; E66.9 Obesity, unspecified; I10 Essential (primary) hypertension
CPT/HCPCS: 36415; 80048; 80061; 83036; 84450; 84460

== ENCOUNTER 2024-03-30 12:22 | Outpatient (REF) | payer OTHER, SELFPAY ==
[2024-03-30 13:54] LABS: Creatinine Urine 185.32 mg/dL; Microalbum/Creatinine Ratio Ur 9.7 ug/mg cr (<30)
[2024-03-30 14:19] LABS: Estimated Average Glucose 192 mg/dL; Hemoglobin A1C 268.2498 umol/L; Hemoglobin A1c % 8.3 % (<6.0); Total Hemoglobin (HGBA1C) 3966.1553 umol/L
[2024-03-30 14:22] LABS: Alanine Aminotransferase 43 U/L (0-40); Anion Gap 12 (12-20); Aspartate Amino Transferase 19 U/L (5-37); Blood Urea Nitrogen 14 mg/dL (9-16); Carbon Dioxide 28 mmol/L (22-29); Chloride 102 mmol/L (96-108); Cholesterol 242 mg/dL (<200); Estimated Glomerular Filt Rate > 60; Glucose Fasting 187 mg/dL (60-99); HDL Cholesterol 40 mg/dL (>40); LDL Cholesterol Calculated 140 mg/dL (<100); Potassium 4.1 mmol/L (3.3-5.1); Sodium 138 mmol/L (135-145); Triglycerides 311 mg/dL (<150)
== END 2024-03-30 12:23 | disposition home or self-care (01) ==
LOC: HO.HMGCLDS 12:22
PROVIDERS: PCP Internal Medicine; Visit Provider Internal Medicine
DX: I10 Essential (primary) hypertension (principal); E78.2 Mixed hyperlipidemia; E11.65 Type 2 diabetes mellitus with hyperglycemia; E66.9 Obesity, unspecified
CPT/HCPCS: 36415; 80048; 80061; 82043; 82570; 83036; 84450; 84460

== ENCOUNTER 2024-04-04 13:12 | Outpatient (AMB) | payer OTHER, SELFPAY ==
--- NOTE | 2024-04-04 13:09 | A.OFFPC_ITS ---
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 Consultant Language: [place]an Allergies No Known Allergies Allergy (Verified 04/04/24 13:33) Medication List - Last Reconciled 04/04/24 by Ashlee Mortensen MD blood sugar diagnostic (FreeStyle Lite Strips) Check fasting glucose twice a day before meals blood-glucose meter (FreeStyle [place] Lite kit) Check blood sugar fasting twice a day before meals hydroxyzine HCl 25 mg PO BEDTIME PRN lancets Check fasting glucose twice a day before lisinopril 10 mg PO DAILY metformin 1,000 mg PO BIDWMEAL Tobacco use date assessed: 04/04/24 Dental Screening Dental Screen Date: 04/04/24 HPI f/u DM HPI Details 28-year-old male with mixed dyslipidemia , type 2 diabetes mellitus and hypertension, here today for follow-up. 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 Blood pressure today is elevated at 148/100. He states however that he has not yet taken his blood pressure medicines morning as he forgot. Admits to forgetting to take his medicines frequently. Latest fasting labs showed hemoglobin A1c improving, but still not at goal at 8.4%, and lipid levels still not at goal. [facility] Medical History Essential hypertension Mixed dyslipidemia Type 2 diabetes mellitus with hyperglycemia, without long-term current use of insulin History of heroin use Balanitis Obesity (BMI 35.0-39.9 without comorbidity) Surgical History No pertinent past surgical history Social History Housing: Apartment Patient Tobacco Use Status: Former Tobacco user e-Cigarette/Vaping Use: Never Used service: No Current occupational status: employed Cognitive needs: No Hearing needs: No Vision needs: Yes Questionnaire Thrive Questionnaire Date Thrive assessed: 07/15/23 BELA-7 AMB Questionnaire BELA-7 Date BELA - 7 assessed: 07/15/23 Source: Developed by Drs. Juan Carlos Pepper, Sarah Terry, Elias Jamison and colleagues, with an educational rose from [employer]. Physical exam (Primary Care) Vital Signs: Last Vital Signs Pulse 97 04/04/24 13:16 BP 148/100 H 04/04/24 13:16 Pulse Ox 98 04/04/24 13:16 Oxygen Delivery Method Room Air 04/04/24 13:16 BMI result Body Mass Index 37.3 Tobacco/Smoking Status: Tobacco use Status Tobacco use date assessed 04/04/24 04/04/24 13:11 Patient Tobacco Use Status Former Tobacco user 04/04/24 13:11 e-Cigarette/Vaping Use Never Used 04/04/24 13:11 Thrive Assessment: Date of Thrive Assessment Date Thrive assessed 07/15/23 04/04/24 13:11 Results Reviewed Results Reviewed: silas: Girma [place] Age/Sex: 28/M : 1995 Unit#: [id number] Attend Dr: Ashlee Mortensen MD Re03/30/24 Status: DEP REF Location: [facility] Disch: SPEC : [id number] CELESTINO: 03/30/24 STATUS: COMP REQ : [id number] RECD: 03/30/24-[address]: Ashlee Mortensen MD COMP: 03/30/24-1421 ENTERED: 03/30/24-[address]: ORDERED: Met Prof Fast, AST, ALT, Lipid Panel Test Result Flag Reference Sodium 138 135-145 mmol/L Potassium 4.1 3.3-5.1 mmol/L CL 102 96-108 mmol/L CO2 28 22-29 mmol/L Gap 12 12-20 BUN 14 9-16 mg/dL Creat 0.80 0.5-1.4 mg/dL eGFR > 60 Chronic Kidney Disease: Estimated GFR < 60 mL/min/1.73m2 Severe Kidney Disease: Estimated GFR < 15 mL/min/1.73m2 FBS 187 H 60-99 mg/dL A fasting glucose of 126 mg/dl or greater on more than one occasion is considered diagnostic of diabetes. CA 10.0 8.4-10.2 mg/dL AST (GOT) 19 5-37 U/L ALT (GPT) 43 H 0-40 U/L Triglyceride 311 H <150 mg/dL Desirable Triglyceride: less than 150 mg/dL Borderline High Triglyceride 150-199 mg/dL High Triglyceride: 200-499 mg/dL Very High Triglyceride: greater than or equal to 5OO mg/dL Cholesterol 242 H <200 mg/dL Desirable Cholesterol: less than 200 mg/dL Borderline High Cholesterol: 200-239 mg/dL High Cholesterol: greater than 239 mg/dL LDL Calculated 140 H <100 mg/dL Desirable LDL: less than 100 mg/dL Near Optimal/Above Optimal LDL: 110-129 mg/dL Borderline High LDL: 130-159 mg/dL High LDL: 160-189 mg/dL Very High LDL: greater than or equal to 190 mg/dL HDL 40 L >40 mg/dL Desirable HDL: greater than 40 mg/dL Note: This HDL assay may give artificially low results in patients with liver disease. Laboratory Tests 07/21/23 03/30/24 03/30/24 09:09 12:26 12:35 Estimat Average Glucose 240 192 Hemoglobin A1c % 10.0 H 8.3 H Urine Creatinine 185.32 Urine Microalbumin 18.0 Microalb/Creat Ratio 9.7 \ Coding Level of Care Code Est Pt Level 4 (86892) Complex EM visit Add On G2211 Diagnoses Type 2 diabetes mellitus with hyperglycemia, without long-term current use of insulin E11.65 Mixed dyslipidemia E78.2 Essential hypertension I10 Obesity (BMI 35.0-39.9 without comorbidity) E66.9 Assessment & Plan Assessment & Plan (1) Type 2 diabetes mellitus with hyperglycemia, without long-term current use of insulin: Code(s): E11.65 - Type 2 diabetes mellitus with hyperglycemia Category: Medical Plan: Recent labs reviewed, with improving diabetes control but still not at goal of less than 7%. Will continue on metformin a 1000 mg 1 tablet twice a day, reminded to take medicines as instructed. Will add glipizide 5 mg 1 tablet twice a day with meals, continue to check fasting blood sugar at home, maintain log and bring to next appointment for review. Reinforced diabetic diet and regular exercise with patient. Counseled regarding importance of yearly diabetes retinopathy screening. Patient advised to inspect feet daily, for any signs of injury, callus or infection. Compliance with diet and regular exercise again stressed. Blood pressure goal is less than 130/80, goal LDL is less than 100 and goal hemoglobin A1c is less than 7% follow-up appointment made in-3--months, after fasting labs done. (2) Mixed dyslipidemia: Code(s): E78.2 - Mixed hyperlipidemia Category: Medical Plan: Reviewed recent fasting lipid profile with patient with lipid levels elevated . Started on rosuvastatin 5 mg per tablet taken once a day, in addition to adherence to low-cholesterol diet and regular exercise, at least 30 minutes 3 to 4 times a week. Advised patient to make healthy food choices, eat more fruits, vegetables, whole grains, wild caught fish and low-fat dairy. Limit amount of meat and fried or fatty food products, as well as processed foods and fast foods. Follow-up scheduled with repeat fasting lipid panel in 3 months. (3) Essential hypertension: Code(s): I10 - Essential (primary) hypertension Category: Medical Plan: Blood pressure not at goal of less than 130/80. Continue lisinopril 10 mg once a day, stressed importance of compliance with taking medicines regularly.. Reinforced importance of following a low sodium diet, getting regular exercise, and lowering stress levels. (4) Obesity (BMI 35.0-39.9 without comorbidity): Code(s): E66.9 - Obesity, unspecified Category: Medical Plan: . Discussed need to increase activity and weight reduction. Recommended focusing on improving health instead of dieting. Mediterranean diet is a healthy diet that helps, limit food high in fat, sugar, and calories. Eat slowly, pay attention to portion sizes, plan your meals ahead of time, start regular physical activity, at least 150 minutes of moderate intensity exercise, or 90 minutes per week of vigorous exercise. Keeping a food diary, tracking what you eat and your physical activity can help assess what improvements you can make. There are many health problems associated with being overweight/obese, so it is important to improve your diet and exercise. There are medications and surgical options available, but Lifestyle changes are the 1st step. Orders: Orders Alanine Aminotransferase 06/18/24 E11.65 - Type 2 diabetes mellitus with hyperglycemia, E66.9 - Obesity, unspecified, E78.2 - Mixed hyperlipidemia, I10 - Essential (primary) hypertension Basic Metabolic Panel Fasting 06/18/24 E11.65 - Type 2 diabetes mellitus with hyperglycemia, E66.9 - Obesity, unspecified, E78.2 - Mixed hyperlipidemia, I10 - Essential (primary) hypertension Hemoglobin A1c 06/18/24 E11.65 - Type 2 diabetes mellitus with hyperglycemia, E66.9 - Obesity, unspecified, E78.2 - Mixed hyperlipidemia, I10 - Essential (primary) hypertension Aspartate Amino Transferase 06/18/24 E11.65 - Type 2 diabetes mellitus with hyperglycemia, E66.9 - Obesity, unspecified, E78.2 - Mixed hyperlipidemia, I10 - Essential (primary) hypertension Lipid Panel 06/18/24 E11.65 - Type 2 diabetes mellitus with hyperglycemia, E66.9 - Obesity, unspecified, E78.2 - Mixed hyperlipidemia, I10 - Essential (primary) hypertension Medications: New rosuvastatin 5 mg PO DAILY 30 tabs 4RF glipizide Take with breakfast and supper 5 mg PO BID 30 days 60 tabs 4RF Refilled metformin 1,000 mg PO BIDWMEAL 180 tabs 1RF
[2024-04-04 13:16] VITALS: BP 148/100; PULSE 97; O2SAT 98; BMI 37.3
== END 2024-04-04 13:52 | disposition home or self-care (01) ==
PROVIDERS: PCP Internal Medicine; Visit Provider Internal Medicine
DX: E11.65 Type 2 diabetes mellitus with hyperglycemia (principal); E78.2 Mixed hyperlipidemia; E66.9 Obesity, unspecified; Z68.37 Body mass index [BMI] 37.0-37.9, adult; I10 Essential (primary) hypertension

== ENCOUNTER → 2024-04-04 13:12 | Outpatient (BNVA) | payer OTHER, SELFPAY | PROVIDERS: PCP Internal Medicine; Visit Provider Internal Medicine | DX: E11.65 Type 2 diabetes mellitus with hyperglycemia (principal); E78.2 Mixed hyperlipidemia; E66.9 Obesity, unspecified; I10 Essential (primary) hypertension | CPT/HCPCS: 99212 ==